=== PATIENT | female | born 1990 | race Two or more races ===

== ENCOUNTER 2024-10-17 20:25 | Emergency (ER) | payer OTHER ==
[~2024-10-17] VITALS: Ht 177.8 cm; Wt 68.0 kg
[2024-10-17 22:15] VITALS: BP 116/80; TEMP 97.7; O2SAT 98
[2024-10-17 22:49] LABS: PREGNANCY TEST URINE QUAL NEGATIVE (NEGATIVE)
[2024-10-17 23:00] LABS: APPEARANCE,URINE CLEAR (CLEAR); BILIRUBIN,URINE NEGATIVE (NEGATIVE); BLOOD, URINE NEGATIVE Ery/uL (NEGATIVE); COLOR,URINE YELLOW (YELLOW); KETONES,URINE NEGATIVE (NEGATIVE); LEUKOCYTE ESTERASE ,URINE NEGATIVE (NEGATIVE); NITRITE, URINE NEGATIVE (NEGATIVE); PROTEIN,URINE NEGATIVE (NEGATIVE); UGLUCOSE NEGATIVE (NEGATIVE); UROBILINOGEN,URINE 0.2 EU/dL (0.2)
== END 2024-10-17 23:17 | disposition home or self-care (01) ==
LOC: EDSEX 21:20 → ER 21:20
DX: R30.0 Dysuria (principal); R31.9 Hematuria, unspecified
CPT/HCPCS: 84703-TC